=== PATIENT | female | born 1990 ===

== ENCOUNTER 2017-11-12 02:10 | Emergency (ER) | payer SELFPAY ==
[2017-11-12 02:21] VITALS: RESP 14
--- NOTE | 2017-11-12 03:22 | C.PDOC ---
History Of Present Illness 26 year old female presents to the ER with a complaint of left lower dental pain for the past 1 day. Denies fever, facial swelling, or tooth discharge. Time Seen by Provider: 11/12/17 02:30 Chief Complaint (Nursing): Dental Pain History Per: Patient History/Exam Limitations: no limitations Onset/Duration Of Symptoms: Hrs Current Symptoms Are (Timing): Still Present Recent travel outside of the [place]: No Past Medical History Reviewed: Historical Data, Nursing Documentation, Vital Signs Vital Signs: Last Vital Signs Temp 97.8 F 11/12/17 03:42 Pulse 70 11/12/17 03:42 Resp 14 11/12/17 03:42 BP 120/70 11/12/17 03:42 Pulse Ox 98 11/12/17 04:10 - Medical History PMH: Bipolar Disorder Denies: Diabetes, Hepatitis, HIV, HTN, Chronic Kidney Disease, Seizures, Sexually Transmitted Disease Family History: States: Unknown Family Hx - Social History Hx Alcohol Use: Yes Hx Substance Use: Yes Review Of Systems Constitutional: Negative for: Fever ENT: Positive for: Throat Pain. Negative for: Mouth Swelling, Other (Tooth discharge) Physical Exam - Physical Exam Appears: Non-toxic Skin: Normal Color, Warm, Dry Head: Atraumatic, Normacephalic, No Swelling (Facial) Eye(s): bilateral: Normal Inspection Nose: Normal Oral Mucosa: Moist Tongue: Normal Appearing Lips: Normal Appearing Teeth: Caries (Left lower 2nd molar), Tender To Palpation (Left lower 2nd molar) Gingiva: Normal Appearing, No Swelling Throat: Normal, No Erythema Neck: Normal, Supple, No Other (Swelling) Lymphatic: No Adenopathy Neurological/Psych: Oriented x3, Normal Speech ED Course And Treatment O2 Sat by Pulse Oximetry: 98 (Room air) Pulse Ox Interpretation: Normal Medical Decision Making Medical Decision Making: Ultram and motrin administered for pain. Patient started on antibiotics and advised to follow up at dental clinic. Disposition - Disposition Referrals: Rian Strange DMD [Staff Provider] - Disposition: HOME/ ROUTINE Disposition Time: 03:19 Condition: GOOD Additional Instructions: Follow up with the Dentist clinic within 1-2 days, Return if worsened. Prescriptions: Amoxicillin [Amoxil 500 mg Cap] 500 mg PO TID #29 cap Ibuprofen [Motrin Tab] 800 mg PO TID #20 tab traMADol [Ultram] 50 mg PO Q6 PRN #20 tab PRN Reason: Pain Instructions: Tooth Abscess (DC) Forms: [employer] ([place]) - Clinical Impression Clinical Impression: Dental caries, Dental abscess - PA / [employer] / Resident Statement MD/DO has reviewed & agrees with the documentation as recorded. - Scribe Statement The provider has reviewed the documentation as recorded by the Scribe Chente Soto All medical record entries made by the Scribe were at my direction and personally dictated by me. I have reviewed the chart and agree that the record accurately reflects my personal performance of the history, physical exam, medical decision making, and the department course for this patient. I have also personally directed, reviewed, and agree with the discharge instructions and disposition.
[2017-11-12] MEDS ORDERED: Amoxicillin-Clav 500-125 mg Tab PO ONE (03:36)
[2017-11-12 03:43] VITALS: BP 120/70; PULSE 70; TEMP 97.8
[2017-11-12 04:10] VITALS: O2SAT 98
== END 2017-11-12 03:43 | disposition home or self-care (01) ==
LOC: C.ER 02:10
DX: K02.9 Dental caries, unspecified (principal); K04.7 Periapical abscess without sinus; F17.210 Nicotine dependence, cigarettes, uncomplicated